=== PATIENT | male | born 1975 | race Caucasian/White ===

== ENCOUNTER → 2018-05-04 | Outpatient (CLI) | payer OTHER ==
[2018-05-04 14:55] LABS: ALT 43 U/L (21-72); AST 30 U/L (17-59); Albumin 4.7 g/dL (3.5-5.0); Alkaline Phosphatase 59 U/L (38-126); Anion Gap 15 mmol/L; Blood Urea Nitrogen 15 mg/dL (9-20); Calcium 9.8 mg/dL (8.4-10.2); Carbon Dioxide 23 mmol/L (22-30); Chloride 101 mmol/L (98-107); Glucose 122 mg/dL (74-99); Magnesium 1.7 mg/dL (1.6-2.3); Potassium 4.4 mmol/L (3.5-5.1); Sodium 139 mmol/L (137-145); Total Bilirubin 0.6 mg/dL (0.2-1.3); Total Protein 7.3 g/dL (6.3-8.2)
[2018-05-04 15:00] LABS: Basophils % (A) 1 %; Eosinophils % (A) 0 %; HGB 14.9 gm/dL (13.0-17.5); Lymphocytes # (A) 1.4 k/uL (1.0-4.8); Lymphocytes % (A) 17 %; MCH 30.2 pg (25.0-35.0); MCHC 34.7 g/dL (31.0-37.0); MCV 87.2 fL (80.0-100.0); Mean Platelet Volume 6.3; Monocytes # (A) 0.5 k/uL (0-1.0); Monocytes % (A) 6 %; Neutrophils # (A) 6.1 k/uL (1.3-7.7); Neutrophils % (A) 75 %; Platelet Count 298 k/uL (150-450); RBC 4.93 m/uL (4.30-5.90); RDW 13.8 % (11.5-15.5); WBC 8.2 k/uL (3.8-10.6)
--- NOTE | 2018-05-04 15:41 | MR ---
EXAMINATION TYPE: MR brain wo/w con DATE OF EXAM: 05/04/2018 COMPARISON: HISTORY: Off balance, difficulty swallowing, weak sense of smell TECHNIQUE: Multiplanar, multisequence images of the brain and brainstem is performed without and with IV contras t, utilizing 7 mL intravenous Gadavist . FINDINGS: Diffusion weighted images demonstrate no evidence of a recent infarct or other diffusion ab normality. There is no extra-axial fluid collection. 2 small foci of hyperintensity in the left adonis etal brain and inversion recovery T2-weighted sequences measuring 3 to 4 mm, single focus in the righ t frontal brain measures 3 mm on axial image 19, 3 small foci in the periventricular white matter on axial image 18 left parietal lobe on T2 and inversion recovery sequences. The ventricular system and cisternal spaces are normal in size and appearance. The brain volume is age appropriate. Midline structures demonstrate normal morphology. The craniocervical junction appears within normal limits. Post contrast images demonstrate no abnormal enhancement. The dural venous sinuses appear pa tent. The visualized sinuses are remarkable for minimal mucosal disease in the ethmoid air cells, fro ntal sinus and the globes are intact. IMPRESSION: Nonspecific white matter demyelination of questionable clinical significance, findings co uld be due to vasculitis, migraine headaches, hypertension, multiple sclerosis not excluded in the ap propriate clinical setting. Mild sinus disease.
[2018-05-04 20:44] LABS: Hemoglobin A1C 5.1 % (4.0-6.0)
[2018-05-04 22:27] LABS: C Reactive Protein, High Sens 0.21 mg/L (0.000-3.000); Iron Saturation 38.7 (15.00-50.00)
== END ==
LOC: RADMRIMAIN 13:45
PROVIDERS: ATTEND Family Medicine
DX: R26.89 Other abnormalities of gait and mobility (principal); F80.9 Developmental disorder of speech and language, unspecified; I10 Essential (primary) hypertension; R13.13 Dysphagia, pharyngeal phase; F80.1 Expressive language disorder; Z00.00 Encounter for general adult medical examination without abnormal findings
CPT/HCPCS: 80053; 82607; 83540; 83550; 83735; 84443; 85025; 86141; 83036; 70553; 36415; A9581

== ENCOUNTER 2022-01-30 18:30 | Emergency (ER) | payer OTHER ==
[2022-01-30] MEDS ORDERED: HYDROmorphone 0.5 MG/0.5 ML SYRINGE IVP STA (18:43)
[2022-01-30] MEDS ORDERED: DIPH,PERTUS(ACELL)TETVAC-LF 0.5 ML VIAL IM ONE (18:43)
[2022-01-30 19:09] LABS: Basophils # (A) 0.1 k/uL (0-0.2); Basophils % (A) 1 %; Eosinophils # (A) 0.2 k/uL (0-0.7); Eosinophils % (A) 1 %; Lymphocytes # (A) 2.3 k/uL (1.0-4.8); Lymphocytes % (A) 19 %; MCHC 34.1 g/dL (31.0-37.0); MCV 93.9 fL (80.0-100.0); Mean Platelet Volume 6.9; Monocytes # (A) 0.8 k/uL (0-1.0); Monocytes % (A) 7 %; Neutrophils # (A) 8.5 k/uL (1.3-7.7); Neutrophils % (A) 70 %; Platelet Count 242 k/uL (150-450); RBC 4.37 m/uL (4.30-5.90); RDW 14.3 % (11.5-15.5); WBC 12.1 k/uL (3.8-10.6)
--- NOTE | 2022-01-30 19:18 | ED ---
General Adult HPI - General Chief complaint: Fall Stated complaint: Leg/abd injury Time Seen by Provider: 01/30/22 18:39 Source: patient, RN notes reviewed, old records reviewed Mode of arrival: wheelchair Limitations: no limitations - History of Present Illness Initial comments: 46-year-old male presenting for evaluation of flank pain, abdominal pain, and right ankle pain. Patient was trampled by a horse. There is no head or neck injury. No anticoagulation. He was hit in the left flank and lower chest as well as the anterior abdomen and right ankle. - Related Data Allergies Allergy/AdvReac Type Severity Reaction Status Date / Time Sulfa (Sulfonamide Allergy Rash/Hives Verified 01/30/22 18:32 Antibiotics) Review of Systems ROS Statement: Those systems with pertinent positive or pertinent negative responses have been documented in the HPI. ROS Other: All systems not noted in ROS Statement are negative. Past Medical History Past Medical History: Hypertension Additional Past Medical History / Comment(s): parkinsons History of Any Multi-Drug Resistant Organisms: None Reported Past Surgical History: Tonsillectomy Past Psychological History: No Psychological Hx Reported General Exam Limitations: no limitations General appearance: alert, in no apparent distress Head exam: Present: atraumatic, normocephalic Eye exam: Present: normal appearance, PERRL ENT exam: Present: normal exam Neck exam: Present: normal inspection. Absent: tenderness, meningismus Respiratory exam: Present: normal lung sounds bilaterally. Absent: respiratory distress, wheezes Cardiovascular Exam: Present: regular rate, normal rhythm GI/Abdominal exam: Present: soft, other (Erythema to the anterior abdomen). Absent: distended, tenderness Extremities exam: Present: joint swelling, other (Abrasion left medial knee, anterior right ankle, soft tissue swelling at the ankle, distal pulses intact) Neurological exam: Present: alert, oriented X3, CN II-XII intact. Absent: motor sensory deficit Skin exam: Present: warm, dry, intact Course Vital Signs 01/30/22 01/30/22 01/30/22 18:33 19:07 19:15 Temperature 98.2 F 98.5 F Pulse Rate 62 75 64 Respiratory 16 16 12 Rate Blood Pressure 109/75 133/93 145/95 O2 Sat by Pulse 99 98 99 Oximetry EKG Findings - EKG Comments: EKG Findings:: EKG: Sinus rhythm rate of 66 rate of 153, QRS duration 106, QTC 4 20 Procedures - Orthopedic Splinting/Casting Injury #1 Side: right Lower Extremity Injury Location: ankle Lower Extremity Immobilizer: Bradly wrap Medical Decision Making - Medical Decision Making 46-year-old male presents for evaluation of left upper flank pain abdominal pain and ankle pain after being trampled by a horse. He does have some superficial abrasions and some abdominal erythema from the injury. He has no focal tenderness. Vital signs are stable. There is no head or neck trauma. I did perform a chest x-ray and x-ray of his ankle injury and I performed a CT of the chest abdomen pelvis which were negative for traumatic injury. Patient feeling better on reevaluation. His vital signs are stable. He is given tetanus update, Toradol and Dilaudid in the emergency department for pain. He is i nstructed take Motrin and Tylenol at home for his continued pain complaints. He should stay off of his right ankle, ice and elevate. If symptoms persist he may require repeat imaging of the right ankle. - Lab Data Result diagrams: 01/30/22 18:58 01/30/22 18:58 Lab Results 01/30/22 01/30/22 01/30/22 Range/Units 18:55 18:58 18:58 WBC 12.1 H (3.8-10.6) k/uL RBC 4.37 (4.30-5.90) m/uL Hgb 14.0 (13.0-17.5) gm/dL Hct 41.0 (39.0-53.0) % MCV 93.9 (80.0-100.0) fL MCH 32.0 (25.0-35.0) pg MCHC 34.1 (31.0-37.0) g/dL RDW 14.3 (11.5-15.5) % Plt Count 242 (150-450) k/uL MPV 6.9 Neutrophils % 70 % Lymphocytes % 19 % Monocytes % 7 % Eosinophils % 1 % Basophils % 1 % Neutrophils # 8.5 H (1.3-7.7) k/uL Lymphocytes # 2.3 (1.0-4.8) k/uL Monocytes # 0.8 (0-1.0) k/uL Eosinophils # 0.2 (0-0.7) k/uL Basophils # 0.1 (0-0.2) k/uL PT 10.4 (9.0-12.0) sec INR 1.0 (<1.2) APTT 21.6 L (22.0-30.0) sec Sodium (137-145) mmol/L Potassium (3.5-5.1) mmol/L Chloride (98-107) mmol/L Carbon Dioxide (22-30) mmol/L Anion Gap mmol/L BUN (9-20) mg/dL Creatinine (0.66-1.25) mg/dL Est GFR (CKD-EPI)AfAm (>60 ml/min/1.73 sqM) Est GFR (CKD-EPI)NonAf (>60 ml/min/1.73 sqM) Glucose (74-99) mg/dL Calcium (8.4-10.2) mg/dL Total Bilirubin (0.2-1.3) mg/dL AST (17-59) U/L ALT (4-49) U/L Alkaline Phosphatase (38-126) U/L Total Protein (6.3-8.2) g/dL Albumin (3.5-5.0) g/dL Urine Color Urine Appearance (Clear) Urine pH (5.0-8.0) Ur Specific [place] (1.001-1.035) Urine Protein (Negative) Urine Glucose (UA) (Negative) Urine Ketones (Negative) Urine Blood (Negative) Urine Nitrite (Negative) Urine Bilirubin (Negative) Urine Urobilinogen (<2.0) mg/dL Ur Leukocyte Esterase (Negative) Blood Type O Positive Blood Type Recheck No Previous Record Bld Type Recheck Status CABO Indicated Antibody Screen NEGATIVE Spec Expiration Date 02/02/2022235701/30/22 01/30/22 Range/Units 18:58 18:58 WBC (3.8-10.6) k/uL RBC (4.30-5.90) m/uL Hgb (13.0-17.5) gm/dL Hct (39.0-53.0) % MCV (80.0-100.0) fL MCH (25.0-35.0) pg MCHC (31.0-37.0) g/dL RDW (11.5-15.5) % Plt Count (150-450) k/uL MPV Neutrophils % % Lymphocytes % % Monocytes % % Eosinophils % % Basophils % % Neutrophils # (1.3-7.7) k/uL Lymphocytes # (1.0-4.8) k/uL Monocytes # (0-1.0) k/uL Eosinophils # (0-0.7) k/uL Basophils # (0-0.2) k/uL PT (9.0-12.0) sec INR (<1.2) APTT (22.0-30.0) sec Sodium 134 L (137-145) mmol/L Potassium 3.8 (3.5-5.1) mmol/L Chloride 100 (98-107) mmol/L Carbon Dioxide 26 (22-30) mmol/L Anion Gap 8 mmol/L BUN 13 (9-20) mg/dL Creatinine 0.80 (0.66-1.25) mg/dL Est GFR (CKD-EPI)AfAm >90 (>60 ml/min/1.73 sqM) Est GFR (CKD-EPI)NonAf >90 (>60 ml/min/1.73 sqM) Glucose 130 H (74-99) mg/dL Calcium 9.4 (8.4-10.2) mg/dL Total Bilirubin 0.4 (0.2-1.3) mg/dL AST 43 (17-59) U/L ALT 12 (4-49) U/L Alkaline Phosphatase 76 (38-126) U/L Total Protein 6.9 (6.3-8.2) g/dL Albumin 4.6 (3.5-5.0) g/dL Urine Color Light Yellow Urine Appearance Clear (Clear) Urine pH 6.5 (5.0-8.0) Ur Specific [place] 1.024 (1.001-1.035) Urine Protein Negative (Negative) Urine Glucose (UA) Negative (Negative) Urine Ketones Negative (Negative) Urine Blood Negative (Negative) Urine Nitrite Negative (Negative) Urine Bilirubin Negative (Negative) Urine Urobilinogen <2.0 (<2.0) mg/dL Ur Leukocyte Esterase Negative (Negative) Blood Type Blood Type Recheck Bld Type Recheck Status Antibody Screen Spec Expiration Date Disposition Clinical Impression: Chest wall contusion, Ankle sprain Disposition: HOME SELF-CARE Condition: Fair Instructions (If sedation given, give patient instructions): Ankle Sprain (ED), Contusion in Adults (ED) Is patient prescribed a controlled substance at d/c from ED?: No Referrals: Tiffani Correa MD [Primary Care Provider] - 1-2 days Time of Disposition: 20:18
[2022-01-30 19:23] LABS: ALT 12 U/L (4-49); AST 43 U/L (17-59); African American GFR (CKD) >90 (>60 ml/min/1.73 sqM); Albumin 4.6 g/dL (3.5-5.0); Alkaline Phosphatase 76 U/L (38-126); Anion Gap 8 mmol/L; Blood Urea Nitrogen 13 mg/dL (9-20); Calcium 9.4 mg/dL (8.4-10.2); Carbon Dioxide 26 mmol/L (22-30); Chloride 100 mmol/L (98-107); Glucose 130 mg/dL (74-99); Non-African American GFR(CKD) >90 (>60 ml/min/1.73 sqM); Potassium 3.8 mmol/L (3.5-5.1); Sodium 134 mmol/L (137-145); Total Bilirubin 0.4 mg/dL (0.2-1.3); Total Protein 6.9 g/dL (6.3-8.2)
[2022-01-30 19:28] LABS: Prothrombin Time 10.4 sec (9.0-12.0)
[2022-01-30 19:33] LABS: Partial Thromboplastin Time 21.6 sec (22.0-30.0)
[2022-01-30 19:41] LABS: Appearance,Urine Clear (Clear); Bilirubin,Urine Negative (Negative); Blood,Urine Negative (Negative); Color,Urine Light Yellow; Glucose,Urine (UA) Negative (Negative); Ketones,Urine Negative (Negative); Leukocyte Esterase,Urine Negative (Negative); Nitrite,Urine Negative (Negative); PH, Urine 6.5 (5.0-8.0); Protein,Urine Negative (Negative); Specific Gravity,Urine 1.024 (1.001-1.035); Urobilinogen,Urine <2.0 mg/dL (<2.0)
--- NOTE | 2022-01-30 19:43 | XR ---
EXAMINATION TYPE: XR ankle complete RT DATE OF EXAM: 01/30/2022 COMPARISON: NONE HISTORY: Stepped on by a horse TECHNIQUE: 3 views FINDINGS: There is small plantar calcaneal spur. Ankle mortise is anatomic. There is soft tissue swel ling over the lateral malleolus. No fracture seen. IMPRESSION: Soft tissue swelling. No fracture. Calcaneal spurring.
--- NOTE | 2022-01-30 19:44 | XR ---
EXAMINATION TYPE: XR chest 1V portable DATE OF EXAM: 01/30/2022 COMPARISON: NONE HISTORY: Stepped on by a horse TECHNIQUE: Single view FINDINGS: Heart is normal. Lungs are clear of infiltrate. No heart failure. There are no hilar masses . Bony thorax is intact. IMPRESSION: Normal chest
--- NOTE | 2022-01-30 20:06 | CT ---
EXAMINATION TYPE: CT ChestAbdPelvis w con DATE OF EXAM: 01/30/2022 COMPARISON: None HISTORY: trauma. back pain and left sided abdominal pain. pt stepped on by horse. CT DLP: 1157.1 mGycm Automated exposure control for dose reduction was used. CONTRAST: Performed with IV Contrast, patient injected with 100 mL of Isovue 370. Images obtained from the thoracic inlet to the level of the pelvis with IV contrast Isovue 100 mL. Lungs are clear of infiltrate. No pleural effusion or pneumothorax. Heart size is normal. No mediasti nal adenopathy. There are no hilar masses. Thoracic aorta is intact. No aneurysm. Liver spleen and stomach pancreas gallbladder appear intact. The bile ducts are not dilated. There is no adrenal mass. Kidneys show satisfactory contrast opacification. There is no hydronephrosi s. Ureters are not dilated. There is no retroperitoneal adenopathy. Bladder distends smoothly. No irena dence of a pelvic mass. There is posterior appendix which appears normal. There is no mesenteric gold a. No ascites or free air. No sign of a bowel obstruction. The thoracic and lumbar vertebra appear intact. No compression fracture. Sternum is intact. The bony pelvis is intact. Hip joints appear normal. Sacroiliac joints appear intact. No evidence of a rib fra cture. Shoulder joints appear intact. Left and right clavicle are intact. Entire shoulder joint is no t included on the exam. IMPRESSION: Negative CT scan chest abdomen pelvis. No evidence of traumatic injury. No fracture.
[2022-01-30] MEDS ORDERED: KETOROLAC 15 MG/ML 1 ML VIAL IVP STA (20:16)
[2022-01-30 20:28] VITALS: BP 134/91; PULSE 84; RESP 22; TEMP 98.2
== END 2022-01-30 20:38 | disposition home or self-care (01) ==
LOC: EC 18:30
DX: S93.401A Sprain of unspecified ligament of right ankle, initial encounter (principal); S20.20XA Contusion of thorax, unspecified, initial encounter; S80.212A Abrasion, left knee, initial encounter; I10 Essential (primary) hypertension; Z23 Encounter for immunization; W55.12XA Struck by horse, initial encounter; W18.39XA Other fall on same level, initial encounter
CPT/HCPCS: 36415; 93005; 86900; 86901; 80053; 85025; 85610; 85730; 86850; 81003; 73610; 71045; 71260; 74177; 90715; 99284; 96374; 96375; 90471; J1885; J1170; Q9967

== ENCOUNTER → 2024-04-28 | Outpatient (CLI) | payer OTHER ==
--- NOTE | 2024-04-28 20:45 | US ---
EXAMINATION TYPE: US liver DATE OF EXAM: 04/28/2024 COMPARISON: NONE CLINICAL INDICATION: Male, 48 years old with history of R74.01 ELEVATION OF LEVELS OF LIVER TRANSAMIN ASE L; Social drinker, HTN, patient denies any other signs, symptoms, or relevant history TECHNIQUE: Grayscale and color Doppler imaging of the right upper quadrant was performed. FINDINGS: EXAM MEASUREMENTS: Liver Length: 15.8 cm Gallbladder Wall: 0.2 cm CBD: 0.8 cm Right Kidney: 10.8 x 6.0 x 5.6 cm LICENSED GUIDE NOTES: Pancreas: Obscured by bowel gas Liver: Increased attenuation, decreased visualization of vessels suggestive of fatty infiltrate Gallbladder: wnl Evidence for sonographic Franklin's sign: No CBD: Dilated Right Kidney: wnl IMPRESSION: No acute abnormality abdomen ultrasound. [facility] Yung Abraham, Workstation: [facility], 04/28/2024 8:43 PM
== END | disposition home or self-care (01) ==
LOC: RADUSWWP 07:43
PROVIDERS: ATTEND Family Medicine
DX: R74.01 Elevation of levels of liver transaminase levels
CPT/HCPCS: 76705